=== PATIENT | female | born 1980 | race Caucasian/White ===

== ENCOUNTER → 2023-02-26 | Outpatient (CLI) | payer MEDICAID, SELFPAY ==
[2023-03-01 15:08] LABS: HPV APTIMA, High Risk Negative (Negative)
== END | disposition home or self-care (01) ==
LOC: LABSPEC 11:24
PROVIDERS: Referring Provider Nurse Practitioner Women's Health; Visit Provider Nurse Practitioner Women's Health
DX: Z12.4 Encounter for screening for malignant neoplasm of cervix (principal)
CPT/HCPCS: 87624; 88175; G0145

== ENCOUNTER 2023-11-15 18:49 | Emergency (ER) | payer SELFPAY ==
[2023-11-15 18:51] VITALS: BP 136/73; PULSE 79; RESP 18; TEMP 36.4; O2SAT 97; BMI 26.2
--- NOTE | 2023-11-15 19:02 | EX.ED.DYSGE1 ---
HPI History of Present Illness Chief Complaint: Foreign Body Detail of Chief Complaint: Foreign body in throat Informant: patient Narrative Narrative: Patient presents to the emergency department with foreign body sensation in her throat. Patient states that she took a herbal capsule 3 nights ago and felt like it got stuck in her throat. Patient's had that sensation since that time. She still able to eat and drink normally. She can feel it moving when she swallows. She was seen in urgent care and referred to the emergency department. She has had no vomiting. PFSH PFSH Home Medications clotrimazole-betamethasone 1 %-0.05 % topical cream 1 applic topical BID 2 weeks #45 grams 02/26/23 [Rx Last Taken Unknown] Allergy/AdvReac Type Severity Reaction Status Date / Time No Known Allergies Allergy Verified 11/15/23 18:51 Family History (Updated 02/26/23 @ 09:13 by Tereza Jimenez) Grandmother Breast cancer Grandfather Cancer Leukemia Aunt Breast cancer Aunt Cancer Surgical History S/P tubal ligation Social History (Updated 02/26/23 @ 09:14 by Tereza Jimenez) household members: spouse number of children: 8 current occupation: [employer] Smoking Status: Never smoker alcohol intake: never substance use type: does not use seatbelt use: always do you feel safe at home: Yes additional social history: - Jose Cruz- 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 ROS ROS ED ROS Narrative Foreign body sensation in throat Review of Systems ROS Unobtainable: other Constitutional Constitutional ED: Reports lethargy; Denies chills, fever(s), sweats or weight loss Eyes Eyes: Denies blurry vision, change in vision or diplopia ENT ENT ED: Denies rhinorrhea or sore throat Cardiovascular Cardiovascular: Denies chest pain, orthopnea or racing heartbeat Respiratory/Chest Respiratory/Chest: Denies cough, dyspnea, dyspnea on exertion, orthopnea or sputum Gastrointestinal Gastrointestinal: Denies abdominal pain, diarrhea, nausea or vomiting Genitourinary Genitourinary ED: Denies dysuria, hematuria or urinary frequency Musculoskeletal Musculoskeletal: Denies arthralgias, back pain, myalgias or neck pain Integumentary Denies abscess, Abrasions or rash Neurologic Neurologic: Denies headache(s) or weakness Psychiatric Psychiatric: Denies anxiety, depression or suicidal thoughts Endocrine Endocrinology: Denies polydipsia, polyphagia or polyuria Hematologic/Lymphatic Hematologic/Lymphatic: Denies easy bleeding, easy bruising or lymphadenopathy Allergic/Immunologic Allergic/Immunologic ED: Denies mouth swelling, tongue swelling or urticaria EXAM Physical Exam Const Vital Signs: 11/15/23 18:51 11/15/23 18:49 11/15/23 20:29 Temperature 97.6 F L 97.9 F Temperature Source Temporal Pulse Rate 79 75 Respiratory Rate 18 18 Respiratory Effort Normal Respiratory Pattern Normal Blood Pressure 136/73 H 140/76 H Blood Pressure Mean 94 97 Pulse Ox 97 97 Oxygen Delivery Method Room Air Positive well nourished and well developed General Appearance ED: well developed and NAD HEENT Reports TM's clear and moist mucous membranes normocephalic and atraumatic; Negative for trauma or tenderness Tympanic Membrane ED: Yes TM's clear Eyes PERRL and EOMs intact bilaterally General Eye ED: Negative for pale conjunctiva or scleral icterus Neck no lymphadenopathy, supple and no JVD General: Negative for tenderness Chest Wall inspection of chest normal and palpation of chest normal Chest: Negative for tenderness Resp normal respiratory effort and clear to auscultation bilaterally Effort and Inspection: Negative for respiratory distress or pain with movement Auscultation: Negative for rhonchi, wheezes or diminished lung sounds Cardio regular rate, regular rhythm, S1 normal heart sound, S2 normal heart sound and no murmurs Peripheral Pulses: pulses 2+ throughout GI normal to inspection, nondistended, normoactive bowel sounds, soft to palpation, non-tender, non-distended and no masses Back/Spine no CVA tenderness and no thoracic nor lumbar tenderness Extremity normal to inspection General Extremety ED: Negative for edema General Extremity: Negative for edema Neuro oriented x3, CN's II-XII intact bilaterally, no sensory deficits noted and gait normal Sensorium / Orientation: awake, alert, oriented to person, oriented to place and oriented to time Motor Exam: strength 5/5 throughout and strength abnormal Psych mental status grossly normal Skin no rashes or lesions noted and no wounds MDM MDM MDM Narrative Medical decision making narrative: Patient presents with foreign body sensation after ingesting a herbal supplement capsule. On exam unable to visualize any foreign bodies. I did obtain a CT scan of the soft tissue neck to evaluate further after discussing case with general surgeon on-call. There was no noted abnormality or radiopaque foreign body noted on the exam. I was asked by the surgeon to have patient follow-up with his office to arrange potential EGD if symptoms persist. I feel it would be unlikely for a capsule to not have dissolved or disintegrated after 3 days and this may just be some irritation that she is feeling. Patient comfortable with plan Radiography Diagnostic Testing: Clinical Impression(s) from Imaging Studies Soft Tissue Neck CT 11/15/23 19:06 IMPRESSION: No radiopaque foreign body is seen. Maxillary sinus disease. Electronically Signed: Glen Juárez DO at 19:41 EDT Reading Location ID and State: [facility] / [place] Tel [phone], Service support , Discharge Plan Triage Chief Complaint: Foreign Body ED Provider: Сергей Ford Dx/Rx/DC Orders Clinical Impression: Foreign body sensation, throat Instructions: ED Swallowed Foreign Body (Adult) Prescriptions: No Action clotrimazole-betamethasone 1-0.05 % cream 1 applic topical BID 14 Days Qty: 45 1RF Primary Care Provider: Care Physician,No Primary Referrals: Bunny Hammer MD [Med Staff - Active Staff] - 3-5 Days Care Physician,No Primary [Primary Care Provider] - Disposition Disposition: Home, Self Care Discharge Date/Time: 11/15/23 20:30
--- NOTE | 2023-11-15 19:06 | CT_ITS ---
INDICATION: foreign body (pill) stuck in throat EXAMINATION: CT NECK - CT Soft Tissue Neck W/O Contrast Injection TECHNIQUE: Multiple axial images were obtained of the neck. A radiation dose optimization technique was used for this scan. IV Contrast dosage and agent: None. RADIATION DOSAGE (If Supplied By Facility): CTDIvol = ( 13.45 ) mGy, DLP = ( 322.44 ) mGycm COMPARISON: FINDINGS: NASOPHARYNX: Unremarkable. SUPRAHYOID NECK: Unremarkable oropharynx, oral cavity, parapharyngeal space, and retropharyngeal space. INFRAHYOID NECK: Unremarkable larynx, hypopharynx, and supraglottis. THYROID: No focal lesions. SALIVARY GLANDS: Unremarkable. LYMPH NODES: No cervical or supraclavicular lymphadenopathy. VASCULAR STRUCTURES: Unremarkable. VISUALIZED PORTIONS OF THE ORBITS, PARANASAL SINUSES, MASTOID AIR CELLS AND SKULL BASE: Mucosal thickening of the maxillary sinuses, right more than left. BONES: Unremarkable. THORACIC INLET: Clear lung apices. CT/Soft Tissue Neck without Contr IMPRESSION: No radiopaque foreign body is seen. Maxillary sinus disease. Electronically Signed: Glen Juárez DO at 19:41 EDT Reading Location ID and State: [facility] / [place] Tel [phone], Service support ,
[2023-11-15 20:29] VITALS: BP 140/76; PULSE 75; RESP 18; TEMP 36.6; O2SAT 97
== END 2023-11-15 20:30 | disposition home or self-care (01) ==
PROVIDERS: Emergency Provider Emergency Medicine; Visit Provider Emergency Medicine
DX: R09.A2 Foreign body sensation, throat (principal)
CPT/HCPCS: 70490; 99282